=== PATIENT | female | born 1955 | race Caucasian/White ===

== ENCOUNTER → 2024-12-22 09:35 | Outpatient (REF) | payer MEDICARE, OTHER, SELFPAY | LOC: RAD 09:35 | PROVIDERS: ATTENDING PHYSICIAN Family Medicine | DX: R10.84 Generalized abdominal pain (principal); Z00.00 Encounter for general adult medical examination without abnormal findings | CPT/HCPCS: 76700; 76830; 76856 ==

== ENCOUNTER → 2025-02-06 10:21 | Outpatient (REF) | payer MEDICARE, OTHER, SELFPAY | LOC: WDC 10:21 | PROVIDERS: ATTENDING PHYSICIAN Family Medicine | DX: Z78.0 Asymptomatic menopausal state (principal); Z12.31 Encounter for screening mammogram for malignant neoplasm of breast | CPT/HCPCS: 77063; 77067; 77080 ==